=== PATIENT | male | born 1985 | race Hispanic/Latino ===

== ENCOUNTER 2019-12-17 11:39 | Emergency (ER) | payer OTHER ==
[2019-12-17] MEDS ORDERED: IBUPROFEN 800 MG TAB ONE (12:22)
== END 2019-12-17 13:11 | disposition home or self-care (01) ==
LOC: EDH 11:39
DX: S83.92XA Sprain of unspecified site of left knee, initial encounter (principal); J45.909 Unspecified asthma, uncomplicated; X58.XXXA Exposure to other specified factors, initial encounter; Y93.39 Activity, other involving climbing, rappelling and jumping off; Y92.89 Other specified places as the place of occurrence of the external cause; Y99.8 Other external cause status
CPT/HCPCS: 73562

== ENCOUNTER 2022-10-01 17:10 | Emergency (ER) | payer OTHER ==
[~2022-10-01] VITALS: Ht 167.6 cm; Wt 86.2 kg
[2022-10-01 17:23] VITALS: BP 152/93; PULSE 100; RESP 18; O2SAT 97
[2022-10-01] MEDS ORDERED: PREDNISONE 20 MG TABLET PO ONE (18:30)
[2022-10-01] MEDS ORDERED: ONDANSETRON ODT 4MG TAB SL ONE (18:30)
[2022-10-01] MEDS ORDERED: IBUPROFEN 600 MG TABLET PO ONE (18:30)
[2022-10-01] MEDS ORDERED: HYDROCODONE/ACETAMINOPHEN 5/325 MG TAB PO ONE (18:30)
[2022-10-01] MEDS ORDERED: DIAZEPAM 5 MG TABLET PO ONE (18:30)
[2022-10-01 21:30] LABS: INFLUENZA TYPE A Negative For Type A (NEGATIVE); INFLUENZA TYPE B Negative For Type B (NEGATIVE)
[2022-10-01 21:32] LABS: COVID19 (SARS ANTIGEN RAPID) POSITIVE FOR SARS AG (NEGATIVE)
[2022-10-01] MEDS ORDERED: NIRM1TAB PO (21:36)
== END 2022-10-01 21:56 | disposition home or self-care (01) ==
LOC: EDH 17:10
DX: U07.1 COVID-19 (principal)
CPT/HCPCS: 87426; 87804